=== PATIENT | female | born 1950 | race Caucasian/White ===

== ENCOUNTER 2023-07-11 09:52 | Emergency (ER) | payer OTHER ==
[~2023-07-11] VITALS: Ht 167.6 cm; Wt 77.1 kg
[~2023-07-11 09:52] MED LIST: HYDR-4497 PO; LISI20TA30 PO; RIVA10TA PO
[2023-07-11 10:00] VITALS: BP_SYST 159; PULSE 66; RESP 18; TEMP 98.2; O2SAT 98
[2023-07-11] MEDS ORDERED: DIPHTH,PERTUSS(ACELL),TET VAC 0.5 ML VIAL (Tdap) I.M. ONE (11:00)
[2023-07-11] MEDS ORDERED: CEPH250C PO (12:23)
[2023-07-11 12:48] VITALS: BP_SYST 144; PULSE 60; RESP 18; TEMP 97.9; O2SAT 99
== END 2023-07-11 12:48 | disposition home or self-care (01) ==
LOC: SED 09:52
DX: S61.217A Laceration without foreign body of left little finger without damage to nail, initial encounter (principal); S80.01XA Contusion of right knee, initial encounter; Z88.5 Allergy status to narcotic agent; Z79.899 Other long term (current) drug therapy; X58.XXXA Exposure to other specified factors, initial encounter; Y93.89 Activity, other specified; Y92.89 Other specified places as the place of occurrence of the external cause; Y99.8 Other external cause status
CPT/HCPCS: 73560-TC; 90715; 99284